=== PATIENT | female | born 1995 ===

== ENCOUNTER 2021-01-11 11:30 | Inpatient (IN) | payer OTHER ==
[~2021-01-11] VITALS: Ht 167.6 cm; Wt 78.9 kg
[2021-01-11] MEDS ORDERED: TIROSINT112 MCG PO (13:31)
== END 2021-01-17 16:55 | disposition home or self-care (01) | DRG 743 ==
LOC: O/R 01-16 08:40 → OB/GYN 01-16 08:40 → SURH 01-16 08:45 → OB/GYN 01-16 13:29
PROVIDERS: ADMIT Specialist; ATTEND Specialist
PROC: 0UDB7ZZ Extraction of Endometrium, Via Natural or Artificial Opening (ICD-10-PCS; 2021-01-16)
PROC: 0UB14ZZ Excision of Left Ovary, Percutaneous Endoscopic Approach (ICD-10-PCS; principal; 2021-01-16 08:45)
DX: D27.1 Benign neoplasm of left ovary (principal); D26.1 Other benign neoplasm of corpus uteri; R10.2 Pelvic and perineal pain; E03.9 Hypothyroidism, unspecified